=== PATIENT | female | born 1990 | race Caucasian/White ===

== ENCOUNTER 2017-09-14 09:47 | Emergency (ER) | payer OTHER ==
[~2017-09-14] VITALS: Ht 172.7 cm; Wt 90.4 kg
[2017-09-14 09:53] VITALS: BP 142/78
== END 2017-09-14 13:07 | disposition home or self-care (01) ==
LOC: ED 09:47
DX: J18.9 Pneumonia, unspecified organism (principal); Z88.8 Allergy status to other drugs, medicaments and biological substances
CPT/HCPCS: Q0092